=== PATIENT | female | born 1965 | race Caucasian/White ===

== ENCOUNTER 2017-02-21 02:10 | Inpatient (IN) | payer OTHER ==
[~2017-02-21] VITALS: Ht 172.7 cm; Wt 71.7 kg
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
[2017-02-21] MEDS ORDERED: ADVIL200 MG PO (05:34)
[2017-02-21] MEDS ORDERED: THERAGRAN-M1 TAB PO (05:36)
--- NOTE | 2017-02-21 08:05 | NUR ---
02/21/17: FIRST ASSESSMENT WAS NOT CHARTED DUE TO THE PT GOING TO SURGERY AT 0655. WILBUR CALDWELL
[2017-02-21 15:10] LABS: ALBUMIN 2.5 gm/dL (3.5-5.0); ANION GAP 11.9 (10.0-19.0); POTASSIUM 3.9 mMol/L (3.7-5.1); TOTAL BILIRUBIN 0.4 mg/dL (0.0-1.5)
[2017-02-21 15:11] LABS: CALCIUM 7.1 mg/dL (8.5-10.5); TOTAL PROTEIN 4.9 g/dL (6.0-8.4)
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
--- NOTE | 2017-02-22 02:40 | NUR ---
Significant Event: A&Ox3. Drowsy. PERRLA. Denies N&T. On tele runs tachy. Low grade temp of 100.0. Lungs slightly coarse. On 2L of O2 sats in low 90s. Chest tube to L) side to low suction. Nausea zofran given. Marte moderate output. Diabetic diet. Meplex drsg to L) hip C/D/I. Sling to L) arm. TTWB to LLE. Non weight bearing to L) arm. Morphine NUT CULLER 1mg demand 8min lockout. IV to L) hand running NS at 100ml/hr. IV to R) hand SL. Follow up:
[2017-02-22 07:32] LABS: BASOPHIL % 0.2 %; EOSINOPHIL % 0.1 %; HEMATOCRIT 26.1 % (33.0-46.0); HEMOGLOBIN 8.5 g/dL (10.0-15.0); IMMATURE GRANULOCYTE # 0.1 K/uL (0.0-0.3); IMMATURE GRANULOCYTE % 0.5 %; LYMPHOCYTE # 1.7 K/uL (0.8-4.0); LYMPHOCYTE % 17.3 %; MCH 29.1 pg (27.0-34.0); MCHC 32.6 gm/dL (32.0-36.5); MCV 89.4 fl (83.0-98.0); MONOCYTE # 0.7 K/uL (0.0-1.0); MONOCYTE % 7.2 %; MPV 11.4 fl (9.4-12.4); NEUTROPHIL # (ANC) 7.4 K/uL (1.8-7.8); NEUTROPHIL % 74.7 %; NRBC % 0 /100WBC (0-0.00); PLATELET COUNT 154 K/uL (150-450); RBC 2.92 M/uL (3.50-5.50); RDW-CV 12.1 % (11.9-14.6); WBC 9.9 K/uL (4.0-11.0)
[2017-02-22 07:51] LABS: ANION GAP 9.7 (10.0-19.0); CHLORIDE 109 mMol/L (96-110); CO2 28 mMol/L (22-32); POTASSIUM 3.7 mMol/L (3.7-5.1); SODIUM 143 mMol/L (135-145)
[2017-02-22 07:52] LABS: ALBUMIN 2.2 gm/dL (3.5-5.0); ALK PHOS 50 IU/L (33-138); ALT 34 IU/L (12-78); AST 56 IU/L (10-40); BLOOD UREA NITROGEN 9 mg/dL (6-24); CALCIUM 7.3 mg/dL (8.5-10.5); CREATININE 0.7 mg/dL (0.5-1.1); ESTIMATED GFR (MDRD EQUATION) > 60; TOTAL BILIRUBIN 0.4 mg/dL (0.0-1.5); TOTAL PROTEIN 4.7 g/dL (6.0-8.4)
--- NOTE | 2017-02-22 17:22 | NUR ---
Significant Event: PT ALERT AND ORIENTED X3; FORGETFUL AT TIMES. DROWSY THROUGHOUT THE SHIFT, BUT AWAKENS EASILY. PERRLA. MOVES ALL EXTREMITIES. CSM INTACT TO L)LEG. TOE-TOUCH WEIGHT BEARING TO L)LEG. 2-ASSIST/TURN Q2H. THERAPY SAT PT ON THE EDGE OF BED THIS MORNING, AND PT DID FAIR. COMPLAINS OF PAIN MOSTLY IN L)SHOULDER; NON-WEIGHT BEARING TO L)UPPER EXTREMITY; SLING INTACT TO ARM. TACHYCARDIA WITH RATES IN THE LOW 100'S-115'S. O2 AT 1 LITER PER NASAL CANNULA. HAS BEEN NAUSEATED THROUGHOUT THE SHIFT; NO EMESIS NOTED. IV ZOFRAN GIVEN X2; LAST DOSE AT 1529. [place] CARRIER D/C'D AT 0925. ETCO2 MONITOR D/C'D. 1 TAB PERCOCET GIVEN X2; LAST DOSE AT 1315. TYLENOL GIVEN AT 1714 FOR COMPLAINTS OF A HEADACHE. ORDER TO KEEP BRITO DUE TO PT NOT MOBILIZING VERY WELL AND BEING NAUSEATED MOST OF THE SHIFT; WILL RE-ASSESS TOMORROW PER ORDER. AC/HS ACCUCHECKS WITH MILD SLIDING SCALE. CT OF L)SHOULDER DONE THIS AFTERNOON DUE TO INCREASED PAIN. IV TO L)HAND INFUSING IV FLUIDS WITHOUT COMPLICATIONS. DIABETIC DIET; POOR APPETITE. NO BM THIS SHIFT. MEPILEX DRESSINGS X3 TO L)LEG ARE CLEAN/DRY/INTACT. L)CHEST TUBE INTACT; CHANGED TO WATER SEAL THIS MORNING. HAS BEEN AT BEDSIDE ALL SHIFT. Follow up: MONITOR PAIN/NAUSEA, ENCOURAGE ACTIVITY, RE-ASSESS BRITO NEED TOMORROW.
--- NOTE | 2017-02-23 03:10 | NUR ---
Significant Event: A&OX3. Denies N&T. Able to move all extremities. VSS. Up heavy 2 assist. NWB to LUE has a sling to be on at all times. TTWB to LLE. Meplex drsg to L) leg C/D/I. On percocet for pain last given at 0300. Morphine given x1 at 2300. Pt has alot of pain with movement. On tele SR to ST at times. No fever. On 2L of O2 sats in low 90s. Chest tube to water seal little to no output to be measured tonight. Chest tube drsg c/d/i. IV to L) hand running NS at 100ml/hr can SL when tolerating fluids well. Pt has been nautious. Low appetite. Accuchecks AC/HS. [place] good urine output. Follow up: Chest x-ray in am.
[2017-02-23 05:17] LABS: BASOPHIL % 0.2 %; EOSINOPHIL % 0.2 %; IMMATURE GRANULOCYTE # 0.1 K/uL (0.0-0.3); IMMATURE GRANULOCYTE % 0.4 %; LYMPHOCYTE # 1.4 K/uL (0.8-4.0); LYMPHOCYTE % 12.1 %; MCH 29.6 pg (27.0-34.0); MCV 89.5 fl (83.0-98.0); MONOCYTE # 0.8 K/uL (0.0-1.0); MONOCYTE % 7.1 %; MPV 11.8 fl (9.4-12.4); NRBC % 0 /100WBC (0-0.00); PLATELET COUNT 141 K/uL (150-450); RBC 2.57 M/uL (3.50-5.50); WBC 11.2 K/uL (4.0-11.0)
[2017-02-23 05:22] LABS: HEMOGLOBIN 7.6 g/dL (10.0-15.0)
[2017-02-23 05:34] LABS: ANION GAP 7.3 (10.0-19.0); BLOOD UREA NITROGEN 7 mg/dL (6-24); CHLORIDE 109 mMol/L (96-110); CO2 30 mMol/L (22-32); CREATININE 0.6 mg/dL (0.5-1.1); ESTIMATED GFR (MDRD EQUATION) > 60; POTASSIUM 3.3 mMol/L (3.7-5.1); SODIUM 143 mMol/L (135-145)
[2017-02-23 05:39] LABS: CALCIUM 7.4 mg/dL (8.5-10.5)
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
--- NOTE | 2017-02-23 15:11 | NUR ---
Significant Event:Patient is alert and oriented times three. PERRLA. Denies numbness or tingling. Moves extremities spontaneosly and on command. NWB Left upper extremity, TTWB left lower extremity. Sling to left arm. 2+ pulses noted to extremities. Lungs clear and diminished throughout. VSS on 1-2L of oxygen. Chest tube removed this shift. Dressing intact. Incentive Spirometry initiated this shift. Sinus Rhythm on telemetry. Bowel sounds active, patient reports passing flatus. No bm this shift. Zofran given for nausea with relief noted. Peppermint aromatherapy also given. Marte catheter dc'd at 1500, no void yet. Mepilex dressing to left lower extremity is clean dry and intact. Changed this shift by Marc PERDOMO. ACHS accu checks with SSI. Morphine and Percocet given for pain to left shoulder with relief noted. Patient does become nauseas with increase in pain, so if pain is controlled nausea usually subsides. Peripheral IV to the left hand has NS infusing at 50ml/hr. Decreased appetite. Patient refused a shower this shift, bedding changed and pericare performed. Turned every 2 hours. Worked with PT/OT. Did not get out of bed this shift. Follow up:
[2017-02-24 04:07] LABS: BASOPHIL % 0.3 %; EOSINOPHIL % 0.2 %; HEMATOCRIT 22.3 % (33.0-46.0); IMMATURE GRANULOCYTE % 0.4 %; LYMPHOCYTE # 1.4 K/uL (0.8-4.0); LYMPHOCYTE % 14.6 %; MCH 29.5 pg (27.0-34.0); MCHC 33.6 gm/dL (32.0-36.5); MCV 87.8 fl (83.0-98.0); MONOCYTE # 0.6 K/uL (0.0-1.0); MONOCYTE % 6.5 %; MPV 11.2 fl (9.4-12.4); NEUTROPHIL # (ANC) 7.2 K/uL (1.8-7.8); NRBC % 0 /100WBC (0-0.00); PLATELET COUNT 155 K/uL (150-450); RBC 2.54 M/uL (3.50-5.50); RDW-CV 11.9 % (11.9-14.6); WBC 9.3 K/uL (4.0-11.0)
[2017-02-24 04:15] LABS: HEMOGLOBIN 7.5 g/dL (10.0-15.0)
[2017-02-24 04:25] LABS: ANION GAP 10.5 (10.0-19.0); BLOOD UREA NITROGEN 9 mg/dL (6-24); CHLORIDE 107 mMol/L (96-110); CO2 28 mMol/L (22-32); CREATININE 0.5 mg/dL (0.5-1.1); ESTIMATED GFR (MDRD EQUATION) > 60; PHOSPHORUS 3.5 mg/dL (2.5-4.9); POTASSIUM 3.5 mMol/L (3.7-5.1); SODIUM 142 mMol/L (135-145)
[2017-02-24 04:28] LABS: ALBUMIN 1.9 gm/dL (3.5-5.0); CALCIUM 7.3 mg/dL (8.5-10.5)
--- NOTE | 2017-02-24 04:34 | NUR ---
Significant Event: A&Ox3. Denies N&T. Moves all extremities to command. On tele tachy at times. VSS. 1L sats in low 90s. Encourage IS. Chest tube site to L) side C/D/I. Chest x-ray done this am. Diabetic diet. Nautious decreased appetite. Voids per bedpan low to marginal urine output. Meplex drsg to L) hip C/D/I. Drsg to L) shoulder due to abrasions. L) arm in SL NWB to L) arm. TTWB to L) leg. IV to L) hand running NS at 50ml/hr SL when tolerating PO well. Percocet and Morphine given for pain. Follow up: Pain control Accuchecks AC/HS
--- NOTE | 2017-02-24 08:57 | NUR ---
A - NUTRITION F/U. K+ 3.5, GLU 151, BUN/TUB OPERATOR 9/0.5, ALB 1.9. PT REPORTS BETTER APPETITE THIS AM; HAS BEEN POOR D/T NAUSEA. HAS TRIED TO DRINK SUPPLEMENT. DIET: DIABETIC W/ GLUCERNA BID. INTAKE 0-50%. D - AT RISK W/ INADEQUATE ORAL INTAKE R/T DECREASED APPETITE AEB INTAKE RECORD AND PT REPORT. I - GOAL: 50% OR BETTER INTAKE BY NEXT REVIEW. M/E - WILL CONT TO MONITOR AND ENCOURAGE INTAKE. F/U IN 2-4 DAYS.
--- NOTE | 2017-02-24 10:57 | NUR ---
Diabetes consult: Visited with the patient and her this morning regarding her new diagnosis of Type II diabetes. 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 Patient reports having a positive family history of diabetes. Discussed with the patient the risk factors for Type II diabetes and current A1C of 12.3%. A target goal of 6.5-7% was provided. Discussed blood sugar target goals as an outpatient will be 100-150, however during her hospitalization we will try to target her blood sugar to <180. The patient reports that she does not have any insurance at this time. Will need to provide the patient with a glucometer, testing supplies and keep medication regimen affordable. In addition, she reports needing to find a new provider in [place] as her physician retired. She is familiar with Ese Cobb APRN, and may decide to establish care with her. Will continue to follow and educate the patient on her diagnosis of diabetes prior to discharge. The patient is having nausea and began having dry heaves during our interaction. Will defer education until later this afternoon or tomorrow.
--- NOTE | 2017-02-24 11:38 | NUR ---
Saw up on NTU floor looking at Milton' chart. He tells me that she would be a good rehab canidate and to call [facility] to set up a day/time for her to admit to them. I called and talked with [facility], she tells me that they can accept Hyun on 02/26 at 0900 if medically cleared by MD to come at that time. Let her know we would plan on this. I stopped in and talked with Hyun and her who was at bedside. Both agree that GIRP would be the best route for her right now. Her ultimate goal is to get home and have her be able to take care of her. Packet started, orders printed, no ID screen needed. Sticky note left on the chart updating MDs that round today of the move to GIRP on if they are ok with this. Primary RN and viscose cellar charge hand update to the plan for GIRP. CM to continue to follow and assist.
--- NOTE | 2017-02-24 13:14 | NUR ---
Significant Event: a/o x 3. pain to left shoulder and left side from rib fxs as well as headaches. PRN norco and PRN morphine for pain management. denies numbness/tingling. moves left foot and has moderate hand grasp to left hand. Mepilex dsgs x 2 to left hip C/D/I. Sling to left arm. dsg to left clavicle area C/D/I. TTWB to left lower extremity. Pivot transfers with vlad walker/ gait belt and two assist. voids per BSC. tele with sinus tach. accuchecks ac/hs. voids per BSC. room air- 2 liters of oxygen when sleeping. PRN zofran and PRN phenergan for nausea. Plan- GIRP 02/26.
--- NOTE | 2017-02-25 05:27 | NUR ---
Significant Event: The patient is Alert and Oriented x3. Denies Numbness and Tingling. Moves all extremities spontaneously and to command. Up with 2 Assist Pivot, with gaitbelt and hemiwalker. VSS, On 2L oxygen per NC. PIV to the Right Forearm saline locked. NWB to the Left upper extremity, TTWB to the Left lower extremity. Sling to the left arm. Mepilex dressing x3 to the left leg. Dressing to the Left shoulder due to a large abrasion. Slight edema to the Left lower extremity. Accu checks ACHS. Pain to the Left Ribs, shoulder/scapula, and Left hip. Gave [place] last at 0421, and Morphine last at 0230. Follow up: GIRP
[2017-02-25 05:36] LABS: BASOPHIL % 0.4 %; EOSINOPHIL # 0.1 K/uL (0.0-0.5); EOSINOPHIL % 1.3 %; HEMATOCRIT 21.4 % (33.0-46.0); IMMATURE GRANULOCYTE # 0.1 K/uL (0.0-0.3); IMMATURE GRANULOCYTE % 0.7 %; LYMPHOCYTE # 1.3 K/uL (0.8-4.0); LYMPHOCYTE % 17.4 %; MCV 88.4 fl (83.0-98.0); MONOCYTE # 0.6 K/uL (0.0-1.0); MPV 11.5 fl (9.4-12.4); NEUTROPHIL # (ANC) 5.4 K/uL (1.8-7.8); NEUTROPHIL % 72.2 %; NRBC % 0 /100WBC (0-0.00); RBC 2.42 M/uL (3.50-5.50); RDW-CV 11.9 % (11.9-14.6); WBC 7.5 K/uL (4.0-11.0)
[2017-02-25 05:38] LABS: HEMOGLOBIN 7.1 g/dL (10.0-15.0); MCH 29.3 pg (27.0-34.0); MCHC 33.2 gm/dL (32.0-36.5); PLATELET COUNT 195 K/uL (150-450)
--- NOTE | 2017-02-25 11:32 | NUR ---
DIABETES CONSULT: Upon arrival, patient is sitting to the chair holding an emesis bag. She reports being tired and nauseated after walking with therapy. The patient is newly diagnosed with diabetes and requires education. The patient is receptive to learning how to chech blood sugars at this time. She has not insurance, therefore she was provided with a contour next glucometer and sample test strips. Reviewed with the patient target blood sugars, A1C and how often to test. The patient was shown how to operate her glucometer but declined attempting to redemonstrate the use of the device. The patient reports she feels "wipe out" after therapy. Will have CDE continue education tomorrow.
--- NOTE | 2017-02-25 13:17 | NUR ---
Confirmed with [facility] on GIRP that they were still fine with accepting Hyun tomorrow as that is what physicians were charting was the plan. [facility] says that they will accept Hyun tomorrow morning at 0900.
--- NOTE | 2017-02-25 16:27 | NUR ---
Significant Event:Patient is alert and oriented times three. PERRLA. CSM intact. Denies numbness or tingling. Moves extremities spontaneously and on command. Equal strength noted throughout. VSS on 1-2L. Sinus tachycardia. Lungs clear and diminished throughout. Bowel sounds active, no bm this shift. Patient voids per the commode with 2 assist, gaitbelt, hemiwalker and pivot. Non weight bearing to the left upper extremity. TTWB to the left lower extremity. Dressing to the left shoulder is intact. Prior chest tube dressing intact, may be removed tomorrow per MD order. ACHS accu checks with SSI. [place] and Morphine for pain with relief noted. Patient takes medications whole without difficulty. Peripheral IV to the right forearm is saline locked. Patient tolerates a Diabetic diet without difficulty. Poor appetite noted. Sling to the left arm. Follow up:Transfer to [facility] in the morning.
--- NOTE | 2017-02-26 03:12 | NUR ---
Significant Event:Patient alert and ox3. Up with 2assist/pivot to BSC. C/o pain to left shoulder/side. Morphine x3,last at 0039 and [place] x3 last at 0303. Sling to left arm-NWB to left arm. Left hip repaired and has mepilex dressing x3. Top site has a dot of drainage-TTWB to left leg. Pedal pulses palpable bilaterally. Moves all extremeties. Chest tube removal site covered by dressing-intact. Has had slightly better appetite this shift. Hasn't had BM since 02/20-denies constipation, passing gas and bowel sounds active. Follow up:Plan for GIRP today.
--- NOTE | 2017-02-26 08:46 | NUR ---
Significant Event:VSS, Rates 6-10/10 for pain in L shoulder, [place] 2 tabs at 0843. Dsgs x 3 to L hip CDI, CSM to lower extremities WNL. Pt tx with 2 assist TTWB on LLE, L shoulder/arm remains in arm sling, moves fingers well, hand grasp moderate, pulses +2, denies numbness/tingling to extremities. Lungs clear/diminshed, uses IS up to 1500ml with reminders. CT dsg removed, no drainage noted. Voids per BSC, last BM 02/20. Pt on Senna, refuses other laxatives. Follow up:Tx to Rehab
== END 2017-02-26 09:25 | disposition disaster alternative care site (69) | DRG 956 ==
LOC: GACC 02:10 → GICU 05:01 → GNTU 05:01 → GICU 02-23 06:47
PROVIDERS: Hospitalist; Orthopaedic Surgery Adult Reconstructive Orthopaedic Surgery; Physician Assistant; ADMIT Surgery
PROC: 0W9B00Z Drainage of Left Pleural Cavity with Drainage Device, Open Approach (ICD-10-PCS; principal; 2017-02-21)
PROC: 0QS706Z Reposition Left Upper Femur with Intramedullary Internal Fixation Device, Open Approach (ICD-10-PCS; principal; 2017-02-21)
DX: S72.142A Displaced intertrochanteric fracture of left femur, initial encounter for closed fracture (principal); S27.0XXA Traumatic pneumothorax, initial encounter; S06.9X9A Unspecified intracranial injury with loss of consciousness of unspecified duration, initial encounter; S22.079A Unspecified fracture of T9-T10 vertebra, initial encounter for closed fracture; S22.42XA Multiple fractures of ribs, left side, initial encounter for closed fracture; D62 Acute posthemorrhagic anemia; J44.9 Chronic obstructive pulmonary disease, unspecified; I10 Essential (primary) hypertension; E11.65 Type 2 diabetes mellitus with hyperglycemia; K80.20 Calculus of gallbladder without cholecystitis without obstruction; E87.6 Hypokalemia; S42.192A Fracture of other part of scapula, left shoulder, initial encounter for closed fracture; V59.9XXA Occupant (driver) (passenger) of pick-up truck or van injured in unspecified traffic accident, initial encounter; M96.89 Other intraoperative and postprocedural complications and disorders of the musculoskeletal system; Y65.8 Other specified misadventures during surgical and medical care; Y79.8 Miscellaneous orthopedic devices associated with adverse incidents, not elsewhere classified; Y92.234 Operating room of hospital as the place of occurrence of the external cause
CPT/HCPCS: C1713; J0690; J1650; J2270; J2405; J2550; J3010; J7030; Q9967

== ENCOUNTER 2017-02-26 10:20 | Inpatient (IN) | payer OTHER ==
[~2017-02-26] VITALS: Ht 172.7 cm; Wt 63.5 kg
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
[~2017-02-26 10:20] MED LIST: ADVIL200 MG PO; THERAGRAN-M1 TAB PO
--- NOTE | 2017-02-26 11:28 | NUR ---
Dietitian spoke to patient and her this morning. However, patient was sleepy, sweating, and nauseated. She is not ready for education at this time.
[2017-02-26 13:00] LABS: BILIRUBIN URINE NEGATIVE (NEGATIVE); BLOOD URINE NEGATIVE /UL (NEGATIVE); COLOR URINE YELLOW (YELLOW); GLUCOSE URINE 1000 mg/dL (NEGATIVE); KETONE URINE NEGATIVE (NEGATIVE); LEUKOCYTES URINE 25 /UL (NEGATIVE); NITRITE URINE NEGATIVE (NEGATIVE); PROTEIN URINE 15 mg/dL (NEGATIVE); SPEC GRAVITY URINE 1.015 (1.003-1.035); TURBIDITY URINE 1+ (CLEAR); UROBILINOGEN URINE 4 mg/dL (NORMAL)
[2017-02-26 13:15] LABS: AMORPHOUS URINE 2+ (NEGATIVE); BACTERIA URINE NEGATIVE (NEGATIVE); EPITHELIAL URINE NEGATIVE #/HPF (NEGATIVE); RBC URINE NEGATIVE #/HPF (NEGATIVE); WBC URINE 0-2 #/HPF (NEGATIVE)
--- NOTE | 2017-02-26 15:49 | NUR ---
[facility] note Attempted on-going diabetes education several times throughout the day. Patient was gone to therapy and then at the end of the day upon going into room, nurses report that patient was "tired" and had just received pain medication. Will continue to try to find a more appropriate time to do teaching for new diagnosis of type 2 diabetes on 02/27/17.
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
--- NOTE | 2017-02-27 03:36 | NUR ---
UP TO BATHROOM WITH 2 ASSIST, USES QUAD CANE TO GET TO WHEELCHAIR. L) ARM IN SLING, NONWT BEARING. TOE TOUCH WT BEARING TO LEFT LEG. DRESSING X3 TO LEFT LEG/HIP D/I. DRESSING TO LEFT TOP SHOULDER D/I. HAD ZOFRAN AT 2216 FOR NAUSEA, NORCO 2 TABS GIVNE TWICE LAST AT 0258. MORPHINE 2 MG IV GIVEN, LAST AT 0125, ALSO HAD TUMS AT THAT TIME. HAD EMESIS OF UNDIGESTED FOOD WHILE UP TO BATHROOM AT 0110. HAD SMEAR OF BM AT THAT TIME/ HAS NOT HAD A BM SINCE 02/20. ACCUCHECK AT HS WAS 143, NO SS INSULIN NEEDED.
--- NOTE | 2017-02-27 05:11 | NUR ---
Zofran 4 mg iv slow push given for c/o nausea. c/o headache refused pain med due to nausea.
[2017-02-27 05:28] LABS: BASOPHIL % 0.2 %; EOSINOPHIL # 0.1 K/uL (0.0-0.5); EOSINOPHIL % 0.9 %; HEMATOCRIT 22.7 % (33.0-46.0); IMMATURE GRANULOCYTE # 0.2 K/uL (0.0-0.3); IMMATURE GRANULOCYTE % 1.5 %; LYMPHOCYTE # 2.1 K/uL (0.8-4.0); LYMPHOCYTE % 17.5 %; MONOCYTE # 0.9 K/uL (0.0-1.0); MONOCYTE % 7.5 %; MPV 10.9 fl (9.4-12.4); NEUTROPHIL # (ANC) 8.5 K/uL (1.8-7.8); NEUTROPHIL % 72.4 %; NRBC % 0 /100WBC (0-0.00); RBC 2.61 M/uL (3.50-5.50); WBC 11.7 K/uL (4.0-11.0)
[2017-02-27 05:29] LABS: HEMOGLOBIN 7.7 g/dL (10.0-15.0); MCH 29.5 pg (27.0-34.0); MCHC 33.9 gm/dL (32.0-36.5); PLATELET COUNT 252 K/uL (150-450)
[2017-02-27 05:52] LABS: ALBUMIN 1.9 gm/dL (3.5-5.0); ALK PHOS 106 IU/L (33-138); ALT 57 IU/L (12-78); ANION GAP 11.4 (10.0-19.0); AST 74 IU/L (10-40); BLOOD UREA NITROGEN 12 mg/dL (6-24); CALCIUM 7.7 mg/dL (8.5-10.5); CHLORIDE 96 mMol/L (96-110); CO2 29 mMol/L (22-32); CREATININE 0.5 mg/dL (0.5-1.1); ESTIMATED GFR (MDRD EQUATION) > 60; POTASSIUM 3.4 mMol/L (3.7-5.1); SODIUM 133 mMol/L (135-145); TOTAL PROTEIN 5.1 g/dL (6.0-8.4)
[2017-02-27 05:53] LABS: TOTAL BILIRUBIN 0.9 mg/dL (0.0-1.5)
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
--- NOTE | 2017-02-27 14:22 | NUR ---
Diabetes center note: 1230 Attempted to do education several times again today, spouse at bedside at this time, and patient is being evaluated by PT at this time. Spouse tells CDE that he is hoping that patient won't have to take insulin at home, but patient states she is OK with giving herself injections, as long as she can use an insulin pen device. Discussed A1C of 12.3 % and rational for obtaining proper control of blood sugars to reduce risks of complications, heart, eyes, kidneys, nerves and to promote wound healing and reduce risks of infection. Will arrange for patient to learn how to self-inject insulin prior to dismissal, unsure at this time how long patient will be in rehab, anticipate at least a week. [id number] Upon returning to room for on-going education, spouse is not present but CDE did cover the topics of hypoglycemia signs and symptoms and treatment of same & hyperglycemia and when to report lows/highs to MD. 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 Discussed Levemir insulin action and Metformin action, and side effects. Patient is instructed to continue reading in Diabetes management booklet and CDE leaves the Survival Skills checklist with patient for her to continue reading and studying this weekend. Patient states she is finally starting to feel better, we will plan to just cover a couple of topics at each visit. Will continue Diabetes Education next week
--- NOTE | 2017-02-27 16:42 | NUR ---
Significant Event: Patient alert and oriented. Up with 1 assist pivot transfer. Toe touch to left leg. Non weight bearing left arm. Wears a sling to left arm. Bowel movement today. Hemorrhoids are bothering her. Mepilex dressing x3 intact to left femur. Accuchecks with s/s insulin. Having lots of nausea today. Zofran given with some relief. Taking [place] and IV morphine for pain. Saline lock. at bedside and helps with her cares. Follow up:
[2017-02-28 04:36] LABS: HEMOGLOBIN 8.2 g/dL (10.0-15.0)
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
[2017-02-28 04:54] LABS: ALBUMIN 2.3 gm/dL (3.5-5.0); ALK PHOS 120 IU/L (33-138); ALT 85 IU/L (12-78); AST 101 IU/L (10-40); BLOOD UREA NITROGEN 7 mg/dL (6-24); CALCIUM 8.1 mg/dL (8.5-10.5); CHLORIDE 107 mMol/L (96-110); CO2 32 mMol/L (22-32); CREATININE 0.7 mg/dL (0.5-1.1); ESTIMATED GFR (MDRD EQUATION) > 60; SODIUM 144 mMol/L (135-145); TOTAL BILIRUBIN 1.1 mg/dL (0.0-1.5); TOTAL PROTEIN 5.8 g/dL (6.0-8.4)
--- NOTE | 2017-02-28 15:03 | NUR ---
Significant Event: PATIENT UP 1 ASSIST PIVOT TRANSFER. ALERT AND ORIENTED X3. NWB TO LEFT ARM. TTWB L LEG. ACHS ACCUCHECKS, RECEIVED 13 UNITS LEVEMIR THIS AM, HAS NOT NEEDED SLIDING SCALE TODAY. NORCO/MORPHINE/ROXICODONE FOR PAIN. PILLS WHOLE WITH WATER. MEPILEX TO LEFT HIP. GAUZE TO L) UPPER CHEST. L) TORSO POKE FROM CHEST TUBE. NEW IV STARTED TO RIGHT UPPER ARM. Follow up:
--- NOTE | 2017-03-01 03:27 | NUR ---
Significant Event: Patient is alert and oriented, VSS. Up one assist with Quad cane pivot transfer to her w/c to get to BR. TTWB to her left leg. Mepilex dressing x 3 to her left thigh. Left arm in a sling and is NWB to her left arm. Accu checks AC&HS last night 125, no sliding scale insulin needed. Pain control has been much better tonight, 2 [place] at bedtime and 2 Roxicodone at 0200. No other meds requested. Follow up:
--- NOTE | 2017-03-01 15:02 | NUR ---
Significant Event: PATIENT UP 1 ASSIST, TTWB TO LEFT LEG, NWB TO LEFT ARM. ROM ALLOWED TO LEFT ARM. KINESIO TAPE TO LEFT SHOULDER. IV TO RIGHT UPPER ARM. ACHS ACCUCHECKS, HAS NOT NEEDED SLIDING SCALE TODAY. POOR APPETITE, ZOFRAN GIVEN X1. RECEIVING NORCO AND ROXICODONE PRN FOR PAIN. MEPILEX TO LEFT HIP INTACT, SMALL AMOUNT OF DRAINAGE. GAUZE TO LEFT SHOULDER. CONTINENT OF BOWEL AND BLADDER. VITALS STABLE ON ROOM AIR. FEEDS SELF, MEDS WHOLE WITH WATER. USES CALL LIGHT APPROPRIATELY. Follow up:
--- NOTE | 2017-03-02 03:30 | NUR ---
Significant Event:A/O. 1 assist with gaitbelt and vlad-walker pivot transfer. TTWB to LLE. Non weightbearing to left arm, in sling. Kinesio tape to left scapula intact, dressing to left shoulder. 3 Mepilex intact to Left hip and leg; small amount of drainage noted. [place] lock to right upper arm C/D/I. ACHS accuchecks; 2 units sliding scale Novolog at HS for 223 glucose plus 13 units Levemir. 2 tabs [place] X2, last at 2355. 2 Roxicodone given last at 2151. Morphine given x1 at 0315. Ice applied to scapula/shoulder. VSS on room air. Off unit with family for a visit. Call light within reach, bed alarm on. Follow up:Pain control. Monitor Bowels. Transfers. ACHS accuchecks.
--- NOTE | 2017-03-02 16:58 | NUR ---
Significant Event:PATIENT ALERT AND ORIENTED THIS SHIFT. VSS. TRANSFERS WITH 1 ASSIST, GAIT BELT PIVOT TRANSFER. HELPS PATIENT A LOT. ACCU CHECKS ACHS. NO SLIDING SCALE NEEDED FOR BREAKFAST. RECEIVED 2 UNITS OF NOVOLOG AT LUNCH FOR BS OF 218. PAIN MEDS CHANGED TODAY AND IS NOW ON DILAUDID EVERY 3 HOURS PRN. LAST DOSE AT 1431. ALSO RECEIVED 2 MG OF MORPHINE IVP AT 1538. SALINE LOCK PATENT IN RIGHT AC AREA. LEFT ARM IN SLING. DRESSING TO LEFT KNEE AREA CHANGED THE OLD ONE ROLLED AND FELL OFF. OTHER MEPILEX DRESSINGS REMAIN INTACT. NO OTHER COMPLAINTS. Follow up:
--- NOTE | 2017-03-03 03:52 | NUR ---
Significant Event:A/O. 1 assist transfer w/ vlad walker and gaitbelt to w/c. NWB to L) leg. NWB to L) arm. Sling in place. Kinesio tape to L) scapula. Mepilex X3 to L) hip and thigh, top dressing sm spot of drainage. is transfering patient. SAline lock to r) AC patent. IV morphine given X1 for pain. Dilaudid PO given X2. Scheduled Tylenol Q6H. ACHS ACCUCHECKS with sliding scale. 110 at HS no sliding scale required. Call light in reach. Bed alarm on. Follow up:Pain control. Transfers.
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
--- NOTE | 2017-03-03 12:04 | NUR ---
A-NUTRITION F/U CBW: 82.7 KG. PT'S WT IS DOWN 2.3 KG X 1 WK AND 4.7 KG SINCE ADMIT VISITED W/PT RE: APPETITE AND WT LOSS. PT STATES THAT HER APPETITE HAS NOT BEEN VERY GOOD AND SHE HAS BEEN HAVING SOME NAUSEA. SHE LIKES THE AURELIA. PUDDING, BUT DOES NOT LIKE THE MAGIC CUP. DISCUSSED ENSURE COMPACT WITH PT; PT AGREEABLE TO TRYING IT TID W/MEALS. LABS: NA 131, K+ 4.0, GLU 100, BUN 15, HYDROELECTRIC PLANT OPERATOR 0.1, ALB 3.3, PREALB 22.0. NO NEW MEDS DIET RX: REGULAR W/1200 ML FLUID RESTRICTION. HIGH PROTEIN SNACK BID AND MAGIC CUP QD. PO INTAKE REF-100%; AVG IS 63%. THIS IS UP SLIGHTLY FROM LAST F/U. EST NUTR NEEDS: 7993-1622 KCALS AND 70-96 GM PROTEIN D-AT NUTRITION RISK W/INADEQUATE ORAL INTAKE R/T DECREASED APPETITE, ALT. GI FXN AEB INTAKE RECORDS, WT LOSS, AND PT REPORT. I-1)D/C MAGIC CUP 2)START ENSURE COMPACT TID 3)PT REPORTS THAT SHE IS GOING HOME TOMORROW; ENCOURAGED HER TO CONTINUE W/ SUPPLEMENT OF HER CHOICE UPON D/C, UNTIL HER APPETITE AND PO INTAKE IMPROVE. M/E-GOAL: PO INTAKE >/=50% WITH NO REFUSALS BY NEXT F/U 1)F/U PO INTAKE, SUPPLEMENT, WT, AND POC IN 3-5 DAYS 2)ASSIST NEEDED
--- NOTE | 2017-03-03 13:27 | NUR ---
D: TR progress note for 03/03/17. I: Pt seen for 2 units at 1000 for education on relaxation techniques, stress/pain management, coping strategies, and functional transfers. R: Pt seen for functional skills building working on relaxation techniques, stress/pain management, continued education on coping skills and functional transfers to increase self awareness on options with leisure for coping strategies post discharge. Education and modeling done on options for relaxation techniques using music, playaways, aromatherapy, labyrinthi, breathing exercises and leisure activities. Pt at start of session verbalized major discomfort and pain with the use of playaways and breathing technique noted decrease in complaints. Pt transferred WC > recliner with vlad walker CGA with cues for safety x1. P: Will continue to see to address goals and plan of care.
--- NOTE | 2017-03-03 14:12 | NUR ---
Significant Event: Pt up in room with 1 assist, pivot to w/c and toilet. Pt does well at TTWB left, but nurse needed to reinforce NWB to left arm PRN as pt would use arm to scoot or boost self in chair. Pt reported that dilaudid does not work as well for her as pain med she was on before. Dilaudid given x3. Newe order for Valuim was received, given at 1007. Morphine IV at 0824. Pt appears to be resting fairly well but when nurse is in room, pt does start moaning more and breathing quicker, and much more expressive when nurse is visibly present. Quinton Kuo NP aware that pain med regimen that started yesterda yis not as effective as the norco pt had been on. Nurse attempted to positively reinforce decreasing use of IV medications, in preparation for going home. Dressing to left hip/thigh changed by Marc PERDOMO. Dressing to left shoulder remains intact. Slight nausea this afternoon, c/o gas pain, TUMS given at 1350. Accuchecks 146, 205. Follow up: activity, pain management, safety
--- NOTE | 2017-03-04 03:00 | NUR ---
Significant Event:A/O. 1 assist pivot with gb and vlad walker; TTWB to left leg. NWB to left arm, in sling at all times. Kinesia tape to left scapula. Dressing to left shoulder over abrasion. 3 mepilex to left hip and thigh, changed 03/03 by Marc PERDOMO, intact. Swelling above coccyx. Encourage to reposition frequently, bought "donut" pillow to asssit with pressure redistribution. Dilaudid X3 last at 199, Valium X1, last at 2040. Patient has trouble getting comfortable. SL to right ac area, flushes well. VSS on room air. very involved in care, transfering and repositioning frequently. Call light in reach. Bed alarm on. Follow up:NWB to left arm. Pain control. Swelling to coccyx area.
[2017-03-04 05:51] LABS: HEMOGLOBIN 10.5 g/dL (10.0-15.0)
[2017-03-04 05:57] LABS: ANION GAP 11.7 (10.0-19.0); BLOOD UREA NITROGEN 8 mg/dL (6-24); CALCIUM 8.9 mg/dL (8.5-10.5); CHLORIDE 104 mMol/L (96-110); CO2 28 mMol/L (22-32); CREATININE 0.8 mg/dL (0.5-1.1); ESTIMATED GFR (MDRD EQUATION) > 60; POTASSIUM 3.7 mMol/L (3.7-5.1); SODIUM 140 mMol/L (135-145)
[2017-03-04 05:59] LABS: HEMATOCRIT 32.5 % (33.0-46.0)
--- NOTE | 2017-03-04 10:35 | NUR ---
Diabetes consult: Patient is newly diagnosed with diabetes and needs to receive additional education. Upon arrival to the unit, the patient's requests the patient not be awakened for education. The patient had just returned to her room from therapy. Talked with nursing staff regarding the patient's need for education. May need to look at scheduling a time to meet with the patient at 0830, prior to therapies, when the patient is less tired. Will continue to follow and attempt education.
--- NOTE | 2017-03-04 12:09 | NUR ---
D: TR progress note for 03/04/17. I: Pt seen for 2 units at 1100 in group session for education on safety when around pets/animals, group participation, and leisure education. management, and coping strategies . R: Pt seen for functional skills building working on relaxation techniques, stress/pain management, continued education on coping skills using animals for Animal Assisted Therapy. Pt completed functional communication skills independently which included introduction and shared with group about her pets. Pt independently with interaction with animals, volunteers and peers, SBA when handling and maneuvering animals during Animal Assisted Therapy utilizing RUE with good safety awareness and good bilateral scanning. Education done on safety with ambulation/mobility in homes when around animals, safety with possibility of poor skin integrity and utilizing pets to assist with coping and stress/pain management when opportunity available. P: Will continue to see to address goals and plan of care.
--- NOTE | 2017-03-04 16:12 | NUR ---
Significant Event:Is A/O.SL in Rt.anticubital.Had dilaudid 2mg po at 0819 & 1331.Had MS 2mg IV at 1020.Pain mostly in Lt.shoulder & back.Some edema over coccyx area.Mepilex drsgs x3 over Lt.hip/thigh.Lt.arm in sling.Tape Lt scapula area. here.Took her for w/c ride outside. Follow up:
--- NOTE | 2017-03-05 05:44 | NUR ---
Alert and oriented. Up and down freq to void. Has lg BM after Supp at 2200. c/O upper back, neck and lt shoulder pain/spasms. On scheduled Tylenol at 1100 and 1700 for you. Took Valium at 0530. Last Dilaudid at 0205 and then IV Morphine at 0225 after Dilaudid not working fast enough. HS accu= 156 with no sliding scale indicated. Left arm in sling. Dsings to left hip dry and intact. here most of evening and assists with pt cares.
--- NOTE | 2017-03-05 13:33 | NUR ---
Significant Event: PATIENT UP 1 ASSIST PIVOT, LEFT LEG TTWB. LEFT ARM IN SLING, NWB BUT ROM PERMITTED. MEPILEX INTACT TO LEFT HIP. 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 DILAUDID AND VALIUM GIVEN FOR PAIN TODAY. IV TO RIGHT UPPER ARM. VITALS STABLE ON ROOM AIR. ACHS ACCUCHECKS, HAS NOT NEEDED SLIDING SCALE, LEVEMIR INCREASED FROM 13 TO 15 UNIT BID. CONTINENT OF BOWEL AND BLADDER. Follow up:
--- NOTE | 2017-03-05 16:08 | NUR ---
Completed simple education with patient regarding monitoring carb intake, explaining why carb counting is necessary and which foods contain carbs. Showed patient what to look for on a food label, including serving side, grams of carbs per serving. Identified grams of carbs vs. grams of sugar. Recommended patient strive for 45-60g carbs per meal and we used the food labels on the snack items she had at her bedside as examples. Patient was tired, but did seem interested in the teaching. Dietitian believes this patient would benefit from outpatient medical nutrition therapy. Recommend this be scheduled at patient's discharge through centralized scheduling.
--- NOTE | 2017-03-06 05:29 | NUR ---
Alert and oriented. Cooperative with cares. Cont to struggle with pain control. On scheduled Tyelnol at 1100 and 1700. Took Dilaudid last at 0325. Valium at midnoc. and IV morphine at 0430. Left arm in sling. Toe touch wt bearing to left leg. Is one assist pivot transfer. On 15 Units Levemir and sliding scale at achs. HS accu= 263 with 4 units given. Has issues with constipation. Last BM was evening of 03/04. Kevin very involved with cares
--- NOTE | 2017-03-06 09:17 | NUR ---
A-NUTRITION F/U DIABETIC DIET ED COMPLETED W/PT 03/05 LABS REVIEWED; GLUC 105, ALB 2.3 DIET RX: CONSISTENT CARB W/GLUCERNA BID. PO INTAKE HAS BEEN 50-100%; AVG OF 86% W/NO REFUSALS SINCE LAST F/U. THIS IS AN IMPROVEMENT FROM AVG OF 39%. D-NUTRITION PROBLEM RESOLVED. I-CONTINUE W/CURRENT SUPPLEMENTS TO MAINTAIN PT'S NUTRITION STATUS M/E-GOAL: PO INTAKE >/=75% FOR DURATION OF ADMIT 1)F/U PO INTAKE, WT, LABS, AND POC IN 4-6 DAYS 2)ASSIST NEEDED
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
--- NOTE | 2017-03-06 17:05 | NUR ---
Significant Event:PATIENT ALERT AND ORIENTED THIS SHIFT. VSS. TRANSFERS WITH 1 ASSIST, GAIT BELT PIVOT TRANSFER. HELPS PATIENT A LOT. COMPLAINED OF LOTS OF PAIN IN THE AM. GIVEN DILAUDID X 2 DOSES THIS SHIFT. LAST DOSE AT 1220. GIVEN VALIUM AT 1006 AND MORPHINE AT 1047. HAS BEEN MORE COMFORTABLE THIS AFTERNOON. RESTS IN BED WHEN NOT IN THERAPY. IV PATENT IN RIGHT AC. NO OTHER COMPLAINTS. Follow up:
--- NOTE | 2017-03-07 05:04 | NUR ---
Significant Event: Patient alert and oriented. Transfers 1 GB/hemiwalker. at bedside and helps with patient care. L) arm in sling. Slept well throughout the night and woke up in pain. Took prn dilaudid and valium at 0415 and scheduled tylenol at 0520. Offered ice with no relief. is requesting that a change in medication is done to help with pain. VSS. Accu check 179 with no sliding scale recieved. 15 units of levemir given at hs. Cooperative with cares. Follow up:
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
--- NOTE | 2017-03-07 14:11 | NUR ---
Significant Event: Patient alert and oriented. Up with 1 assist. Toe touch to left leg. Mepilex dressing x3 dry and intact. Non weight bearing to left arm. Left arm in sling. Saline lock intact. Accuchecks with s/s insulin. Taking Dilaudid for pain. Also on scheduled tylenol.
--- NOTE | 2017-03-08 04:36 | NUR ---
Significant Event: Patient alert and oriented. Transfers 1-2A Gb/hemiwalker. Toe touch with left leg, sling to left arm. Saline lock to R) arm. Mepilex to L) leg. PRN dilaudid and Valium given. VSS. ACHS accucheck, 2 units sliding scale given at bedtime. Cooperative with cares. Follow up:
--- NOTE | 2017-03-08 11:17 | NUR ---
Significant Event: Patient alert and oriented. 1 assist toe touch to left leg. Non weight bearing to left arm. Sling to left arm. Mepilex dressing x3 to left leg. Accuchecks with s/s insulin. Taking Dilaudid for pain and IV Morphine. at bedside and helps with cares. Follow up:
--- NOTE | 2017-03-09 04:33 | NUR ---
Significant Event: Patient alert and oriented. 1A toe touch to L) side, L) arm non weight bearing, wears sling. Saline lock to R) AC. ACHS accucheck. VSS. Dilaudid and Morphine for pain. 3 Mepilex to L) leg. Cooperative with cares. Follow up:
[2017-03-09 05:38] LABS: BASOPHIL # 0.1 K/uL (0.0-0.2); BASOPHIL % 0.6 %; EOSINOPHIL # 0.2 K/uL (0.0-0.5); EOSINOPHIL % 2.4 %; HEMATOCRIT 35.5 % (33.0-46.0); HEMOGLOBIN 11.2 g/dL (10.0-15.0); IMMATURE GRANULOCYTE # 0.1 K/uL (0.0-0.3); IMMATURE GRANULOCYTE % 0.5 %; LYMPHOCYTE # 2.7 K/uL (0.8-4.0); LYMPHOCYTE % 28.4 %; MCH 30.4 pg (27.0-34.0); MCHC 31.5 gm/dL (32.0-36.5); MCV 96.5 fl (83.0-98.0); MONOCYTE # 0.6 K/uL (0.0-1.0); MONOCYTE % 6.4 %; MPV 10.2 fl (9.4-12.4); NEUTROPHIL # (ANC) 5.9 K/uL (1.8-7.8); NEUTROPHIL % 61.7 %; NRBC % 0 /100WBC (0-0.00); PLATELET COUNT 464 K/uL (150-450); RBC 3.68 M/uL (3.50-5.50); WBC 9.5 K/uL (4.0-11.0)
[2017-03-09 05:59] LABS: ALBUMIN 3.4 gm/dL (3.5-5.0); ALK PHOS 201 IU/L (33-138); ALT 32 IU/L (12-78); AST 17 IU/L (10-40); BLOOD UREA NITROGEN 10 mg/dL (6-24); CHLORIDE 106 mMol/L (96-110); CO2 30 mMol/L (22-32); CREATININE 0.7 mg/dL (0.5-1.1); ESTIMATED GFR (MDRD EQUATION) > 60; SODIUM 141 mMol/L (135-145); TOTAL PROTEIN 7.3 g/dL (6.0-8.4)
[2017-03-09 06:00] LABS: TOTAL BILIRUBIN 0.5 mg/dL (0.0-1.5)
--- NOTE | 2017-03-09 12:52 | NUR ---
Diabetes center note: 1230 CDE spoke with nurses and patient regarding need for on-going diabetes education. Patient agrees to inform spouse to be present for review of blood glucose meter and details of diabetes management, necessary as planning for dismissal. Scheduled educational session on , March 12, 2017 at 0830. Nurses agree to block off time for at least one hour for CDE to work with patient and spouse. At this time we don't have an exact date for dismissal, but explained to patient that we would like to get some of the education done, so that there is not an overwhelming amount of teaching, not only on diabetes, but other important nursing, therapy and other topics necessary for her to do at home. Spouse is supportive and is making changes in their home environment for patient to return home.
--- NOTE | 2017-03-10 07:15 | NUR ---
Alert and oriented. Outside with family this evening, returning at 1945. No results from Milk of mag given late yest afternoon. Takes Dilaudid every 2-3 hrs for pain. Last given at 0340. At 0545 pt was up to bathroom and insisted she was in severe pain and requested IV Morphine which was given at this time. This was the only time given this shift. Also took Valium at 2105. HS accucheck= 157. Is one assist transfer with lt foot toe touch and lt arm in sling.
--- NOTE | 2017-03-10 10:19 | NUR ---
A - NUTRITION FOLLOW-UP DIABETIC DIET EDUCATION COMPLETED 03/05. PER RECORD, WT ON ADMIT WAS 159# VS CBW OF 139#, QUESTIONING OF ACCURACY VS SCALE ERROR. LABS: ALB 3.4, PRE-ALB 41 (WAS 15 ON 02/27) NEW MEDS: VALIUM DIET: CONSISTENT CARBS W/ GLUCERNA BID. INTAKE 64% X10 MEALS, RANGE FROM 50-100% ALL MEALS, DINNER DOES NOT USUALLY RECORDED. TAKE ORAL SUPPLEMENT 75-100% X1 NOTED. EST NEEDS: [id number] KCAL, 72-79 GRAMS PROTEIN, FLUID NEEDS: 1ML/KCAL D - NUTRITION PROBLEM RESOLVED. I - CONTINUE W/ GLUCERNA BID. M/E - GOAL: PT WILL CONTINUE TO CONSUME >65% OF MEALS AND AT LEAST ONE ORAL SUPPLEMENT PER DAY IN 3-5 DAYS. PLAN: WILL MONITOR PT'S WEIGHT.
--- NOTE | 2017-03-10 12:48 | NUR ---
D: TR progress note for the 03/10/17. I: Pt seen for 2 units 830 for leisure education, coping strategies, and pain/stress management techniques. R: Pt seen for functional skills building with continued education on utilization of leisure involvement for pain/stress management, cognitive thinking task, and coping strategies to promote recovery and to increase independence with leisure task post discharge for time management. Pt started on new leisure task doing complex logic puzzles on computer. Pt independent with operating mouse using RUE and independent with cognitive thinking for problem solving and strategizing. Discussed discharge and use of leisure post discharge for coping with lifestyle change and pain/stress management. P: Will continue to see to address goals and plan of care.
--- NOTE | 2017-03-10 13:38 | NUR ---
Significant Event: Alert and oriented x 3. Toe touch weight bearing. Takes dilaudid every 2-3 hours for pain. Has morphine ordered PRN as well. Zofran given this AM for nausea. IV to R) AC. Steri strips intact to Left hip/leg. Accuchecks ACHS. 118 and 179 this shift. No sliding scale needed. Uses call light appropriately. Cooperative with cares. present throughout the shift. Follow up:
--- NOTE | 2017-03-11 02:47 | NUR ---
Significant Event: Patient is alert and oriented, VSS. Up TTWB one assist pivot transfers uses a vlad walker. has been present and attentive to her needs. Patient c/o of pain 8/10 to her left scapula and Femur. Dilaudid 2 mg is ordered q 2 hrs PRN. Still had MS and Valium for pain. Saline lock to her right AC. Left arm in a sling. Dressing has been removed to her left thigh incisions with steri strips intact. Was having issues with constipation had a good BM yesterday afternoon. Accu checks AC&HS last night was 208 with 2 units of SSI given. Follow up: Plans for discharge Thur or Fri.
--- NOTE | 2017-03-11 09:57 | NUR ---
Significant Event: Patient alert and oriented. Up with 1 assist. Toe touch to left leg. Non weight bearing to left arm. Hemisling to left arm. Steristrips to left femur. Mepilex to left torso area. OT shower today. Accuchecks with s/s insulin. Taking Dilaudid and Valium for pain. Also has [place] and IV Morphine. at bedside. Follow up:
--- NOTE | 2017-03-11 11:40 | NUR ---
D: TR progress note for 03/11/17. I: Pt seen for 2 units at 1104 in group session for education on relaxation techniques, stress/pain management, coping strategies, group participation and leisure education. R: Pt seen for functional skills building working on relaxation techniques, stress/pain management, continued education on coping skills and group interaction to promote recovery and increase knowledge of coping strategies. Pt actively participated in session, completed functional social communication skills independently which involved personal introduction of self and identification of ways she dealt with pain/stress prior to hospitalization. Education completed by verbal discussion and modeling on the signs and symptoms the physical stress/pain can cause on the body and it's affects along with identification of coping strategies, relaxation techniques using music, playaways, aromatherapy, breathing exercises and leisure activities. P: Will continue to see to address goals and plan of care.
--- NOTE | 2017-03-12 04:42 | NUR ---
Significant Event:A/O. 1 assist pivot with hemo walker and gaitbelt; TTWB to left leg. No weight bearing to left arm. Javier-sling to left arm. 2 steri strips, loose on left hip. Mepilex to left chest intact, over old chest tube site. Continual back ache tonight, hourly medications since 2214; rated 8-10. Last Dilaudid @ 0332. [place] @ 0047. Valium @ 2218. 600 mg Advil @ 0225. Frequent repositioning and ice packs. Pain currently an 04/23. Call light in reach; bed alarm on. Follow up:Pain management. Discharge scheduled for Thursday.
--- NOTE | 2017-03-12 09:01 | NUR ---
Diabetes Consult: PAtient is planning to discharge to home tomorrow. Patient has applied for medicaid but currently is self pay and will not be able to afford to continue Levemir and Novolog insulin injections. Discussed the patient with Dr. Ye. Patient has a creat of 0.7 and gfr of >60 and would be a candidate for glucophage. Recommend substituting Novolin N (NPH) 15 units twice daily for Levemir. Insulin voucher to accompany script to make the first bottle free. In addition, recommend glucophage 500 mg twice daily upon discharge. Patient reports she is needing to establish care with a provider in [place]. Mentioned following up with Ese Cobb APRN. Recommended she see her in the next two weeks and take her blood sugars reading into her appointment. The patient's was provided with instruction on how to use the [employer] Next EZ glucometer and draw up insulin using a vial and syringe. Hypoglycemia protocol was reviewed. The patient was given 30 days worth of testing supplies and encouraged to test twice daily; fasting and a two hour postprandial.
--- NOTE | 2017-03-12 09:24 | NUR ---
Diabetes Consult: Patient's diabetes medication regimen was discussed with Dr. Cowart, who may opt to begin NPH this evening and hold the patient's Levemir.
--- NOTE | 2017-03-12 12:02 | NUR ---
Significant Event:Pt anxious to go home tomorrow. Diabetic Teacher Jo RN, here this am reviewed changes, note new orders, and discharge orders started and written for tomorrow. Pt alert and orientated, and Kevin both active in plan of care. Pt up with 1 assist, transfers pt with good technique. Toe touch left leg, non wt bearing to left arm. Hemisling to left arm. Steristrips remain on left femur, and mepilex to left torso area. Pt had shower pertherapy this am. Pt likes to stay on top of pain, takes Dilaudid, valium, and [place], note MAR for PRN's. Pt has been pleasant and cooperative with plan of care. Follow up:emy control, discharge scheduled for Thursday.
[2017-03-12] MEDS ORDERED: PEPCID20 MG PO (12:38)
[2017-03-12] MEDS ORDERED: COLACE100 MG PO (12:38)
[2017-03-12] MEDS ORDERED: THERAGRAN-M1 TAB PO (12:39)
[2017-03-12] MEDS ORDERED: K-TAB 10MEQ10 MEQ PO (12:40)
[2017-03-12] MEDS ORDERED: SENOKOT8.6 MG PO (12:41)
[2017-03-12] MEDS ORDERED: TYLENOL325 MG PO (12:42)
[2017-03-12] MEDS ORDERED: NORCO 5-325 TA1 EACH PO (12:45)
[2017-03-12] MEDS ORDERED: DULCOLAX10 MG R (12:46)
[2017-03-12] MEDS ORDERED: TUMS REGULAR ST1 TAB PO (12:47)
[2017-03-12] MEDS ORDERED: VALIUM10 M1 PO (12:48)
[2017-03-12] MEDS ORDERED: DILAUDID 2MG(HYD2 MG PO (12:50)
[2017-03-12] MEDS ORDERED: MILK OF MA400 MG/5 M PO (12:51)
[2017-03-12] MEDS ORDERED: ZOFRAN ODT4 MG PO (12:52)
[2017-03-12] MEDS ORDERED: [UNRECOGNIZED DRUG - OTHER] TOP (12:54)
[2017-03-12] MEDS ORDERED: NOVOLIN-N100 UNIT/M SUB-Q (12:55)
[2017-03-12] MEDS ORDERED: GLUCOPHAGE500 MG PO (12:55)
--- NOTE | 2017-03-12 18:39 | NUR ---
APPROX. 1615 PT COMPLAINED OF UPSET STOMACH, TUMS GIVEN WITH SOME RELIEF. QUESTIONS NORCO POSSIBLE TO HAVE CAUSED HE QUESTIONED IT HAPPENING BEFORE. BS 132. PT UP TO THE BR WITH GOOD TOLERANCE, ATE EVENING MEAL, RESTING IN BED DURING ROUNDS. ANXIOUS FOR DISCHARGE TOMORROW.
--- NOTE | 2017-03-12 23:32 | NUR ---
Significant Event:A/O. 1 assist pivot transfers with vlad-walker and gaitbelt; ttwb to left leg. Slightly unsteady. Non-weight bearing to left arm until 04/20/17. Sling to be used at all times. 2 Steri strips loose on left hip. Mepilex intact to left chest over old chest tube site. Nauseous at HS, PO order for Zofran obtained, patient and feel that [place] is making her nauseous. Dilaudid and Valium given at 2330 for pain. Currently resting. at bedside. Follow up:Discharge to home today
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
== END 2017-03-13 13:57 | disposition disaster alternative care site (69) | DRG 945 ==
LOC: GIRP 10:20
PROVIDERS: Nurse Practitioner Family; ADMIT Physical Medicine & Rehabilitation
PROC: F07Z9ZZ Gait Training/Functional Ambulation Treatment (ICD-10-PCS; principal; 2017-02-26)
PROC: F07M6ZZ Therapeutic Exercise Treatment of Musculoskeletal System - Whole Body (ICD-10-PCS; principal; 2017-02-26)
PROC: F06Z6ZZ Communicative/Cognitive Integration Skills Treatment (ICD-10-PCS; principal; 2017-02-26)
PROC: F07Z4ZZ Wheelchair Mobility Treatment (ICD-10-PCS; principal; 2017-02-26)
PROC: F08Z4ZZ Home Management Treatment (ICD-10-PCS; principal; 2017-02-26)
DX: S06.9X9D Unspecified intracranial injury with loss of consciousness of unspecified duration, subsequent encounter (principal); D62 Acute posthemorrhagic anemia; E44.1 Mild protein-calorie malnutrition; I10 Essential (primary) hypertension; S27.0XXD Traumatic pneumothorax, subsequent encounter; S72.142D Displaced intertrochanteric fracture of left femur, subsequent encounter for closed fracture with routine healing; S42.102D Fracture of unspecified part of scapula, left shoulder, subsequent encounter for fracture with routine healing; S22.079D Unspecified fracture of T9-T10 vertebra, subsequent encounter for fracture with routine healing; R26.9 Unspecified abnormalities of gait and mobility; S22.43XD Multiple fractures of ribs, bilateral, subsequent encounter for fracture with routine healing; E11.9 Type 2 diabetes mellitus without complications; J44.9 Chronic obstructive pulmonary disease, unspecified; Z72.0 Tobacco use; K64.9 Unspecified hemorrhoids; V48.5XXD Car driver injured in noncollision transport accident in traffic accident, subsequent encounter; Z68.24 Body mass index [BMI] 24.0-24.9, adult
CPT/HCPCS: J1650; J2270; J2405; Q0162